=== PATIENT | female | born 1960 | race African-American/Black ===

== ENCOUNTER 2019-07-09 14:58 | Emergency (ER) | payer MEDICARE ==
[~2019-07-09] VITALS: Ht 160 cm; Wt 69.0 kg
[2019-07-09] MEDS ORDERED: QUET25TA PO (15:25)
[2019-07-09 17:25] VITALS: BP 122/67
== END 2019-07-09 17:33 | disposition home or self-care (01) ==
LOC: ER 14:58
DX: M79.671 Pain in right foot (principal)
CPT/HCPCS: 73630; 99283

== ENCOUNTER 2021-09-13 17:07 | Emergency (ER) | payer MEDICARE ==
[~2021-09-13] VITALS: Ht 167.6 cm; Wt 68.0 kg
[~2021-09-13 17:07] MED LIST: QUET25TA PO
[2021-09-13 17:09] VITALS: BP 128/88
[2021-09-13 17:43] LABS: CLARITY URINE CLEAR (CLEAR); COLOR URINE YELLOW (YELLOW); KETONES URINE NEGATIVE (NEGATIVE); LEUKOCYTE ESTERASE URINE 3+ (NEGATIVE); NITRITE URINE POSITIVE (NEGATIVE); OCCULT BLOOD URINE 1+ (NEGATIVE); PROTEIN URINE NEGATIVE (NEGATIVE); SPECIFIC GRAVITY URINE 1.008 (1.005-1.030)
== END 2021-09-13 20:35 | disposition left against medical advice (07) ==
LOC: ER 17:07
DX: Z53.21 Procedure and treatment not carried out due to patient leaving prior to being seen by health care provider (principal); R82.998 Other abnormal findings in urine
CPT/HCPCS: 81003; 99285